=== PATIENT | female | born 1940 | race Caucasian/White ===

== ENCOUNTER 2019-09-05 09:05 | Observation (INO) | payer MEDICARE ==
[~2019-09-05] VITALS: Ht 160 cm; Wt 102.5 kg
[~2019-09-05 09:05] MED LIST: BUPIVACAINE/PF 0.25% ONE; EPINEPHRINE 1 MG/ML, 1ML ONE; LETR2.5T PO; METO25TA35 PO
[2019-09-05] MEDS ORDERED: LIDOCAINE-MPF 1%, 2ML INFIL ONE (10:00)
[2019-09-05 10:18] VITALS: BP 128/74
[2019-09-05] MEDS: LACTATED RINGERS 1,000 ML IV SCH ×3 (10:41→23:28)
[2019-09-05] MEDS ORDERED: BUPIVACAINE/PF 0.25% ONE (15:33)
[2019-09-05] MEDS ORDERED: EPINEPHRINE 1 MG/ML, 1ML ONE (15:33)
[2019-09-05] MEDS ORDERED: INDOCYANINE GREEN 25 MG VIAL ONE (15:33)
[2019-09-05] MEDS ORDERED: HEPARIN 5,000 UNITS/ML, 1ML ONE (15:33)
[2019-09-05] MEDS ORDERED: FENTANYL PF 250 MCG/5ML ONE (16:36)
[2019-09-05] MEDS ORDERED: PROPOFOL 50 ML ONE (16:36)
[2019-09-05] MEDS ORDERED: ROCURONIUM 10MG/ML,5ML ONE (17:49)
[2019-09-05] MEDS ORDERED: SUCCINYLCHOLINE 20 MG/ML, 10ML ONE (17:49)
[2019-09-05] MEDS ORDERED: OXYcodone 5 MG/5 ML ORAL.SOL UDC PO PRN (18:00)
[2019-09-05] MEDS ORDERED: ACETAMINOPHEN 325 MG TABLET PO PRN (18:00)
[2019-09-05] MEDS ORDERED: DIPHENHYDRAMINE 50 MG/ML, 1ML IVPush PRN (18:00)
[2019-09-05] MEDS ORDERED: ONDANSETRON ODT 8 MG PO PRN (18:00)
[2019-09-05] MEDS ORDERED: EPHEDRINE 50 MG/ML, 1ML IVPush PRN (18:00)
[2019-09-05] MEDS ORDERED: MIDAZOLAM 1 MG/ML, 2ML IV PRN (18:00)
[2019-09-05] MEDS ORDERED: ONDANSETRON 2MG/ML, 2ML IV PRN (18:00)
[2019-09-05] MEDS ORDERED: FENTANYL PF 100 MCG/2ML IV PRN (18:00)
[2019-09-05] MEDS ORDERED: PROMETHAZINE 25 MG/ML, 1ML IV PRN (18:00)
[2019-09-05] MEDS ORDERED: DEXAMETHASONE 4 MG/ML, 1ML ONE (19:49)
[2019-09-05] MEDS ORDERED: CEFAZOLIN 1,000 MG ONE ×2 (19:49)
[2019-09-05] MEDS ORDERED: ONDANSETRON 2MG/ML, 2ML ONE (19:49)
[2019-09-05] MEDS ORDERED: SUGAMMADEX 200 MG/2 ML IVPush ONE (20:16)
[2019-09-05] MEDS ORDERED: METOPROLOL 1 MG/ML, 5ML ONE (20:18)
[2019-09-05] MEDS ORDERED: FENTANYL PF 100 MCG/2ML ONE (20:55)
[2019-09-05] MEDS ORDERED: morphine SULFATE 10 MG/ML, 1ML ONE ×2 (21:03→21:32)
[2019-09-05] MEDS: MORPHINE SULFATE 4 MG/ML, 1ML IVPush PRN ×3 (21:06→21:35)
[2019-09-05] MEDS ORDERED: OPIUM/BELLADONNA SUPP.RECT 16.2-30 MG ONE (21:10)
[2019-09-05] MEDS ORDERED: OPIUM/BELLADONNA SUPP.RECT 16.2-30 MG PR ONE (21:30)
[2019-09-05] MEDS ORDERED: PROMETHAZINE 25 MG/ML, 1ML ONE (21:49)
[2019-09-05] MEDS ORDERED: OXYcodone 5 MG/5 ML ORAL.SOL UDC ONE (21:54)
[2019-09-05] MEDS ORDERED: KETOROLAC 30 MG/1 ML IVPush PRN (22:00)
[2019-09-05] MEDS ORDERED: morphine SULFATE 10 MG/ML, 1ML IVPush PRN (22:00)
[2019-09-05] MEDS ORDERED: ONDANSETRON 2MG/ML, 2ML IVPush PRN (22:00)
[2019-09-05] MEDS ORDERED: OXYcodone/APAP 5/325MG TABLET PO PRN (22:00)
[2019-09-05 23:02] VITALS: BP 140/60
[2019-09-06 03:09] VITALS: BP 116/68
[2019-09-06] MEDS: LACTATED RINGERS 1,000 ML IV SCH (05:59)
[2019-09-06 06:37] VITALS: BP 111/68
[2019-10-05] MEDS ORDERED: METO25TA35 PO (12:27)
[2019-10-05] MEDS ORDERED: OXYcodone/APAP 5/325MG PO (12:27)
[2019-10-05] MEDS ORDERED: POLY17PO5 PO (12:27)
[2019-10-05] MEDS ORDERED: ONDA4TAB13 SL (13:54)
[2019-10-05] MEDS ORDERED: ACET650S21 PO (13:54)
== END 2019-09-06 12:00 | disposition home or self-care (01) ==
LOC: OUT 09:05 → 4NW 21:37 → DCLOUNGE 09-06 11:44
PROVIDERS: ADMIT Specialist; ATTEND Specialist
DX: C7A.1 Malignant poorly differentiated neuroendocrine tumors (principal); C50.919 Malignant neoplasm of unspecified site of unspecified female breast; C79.51 Secondary malignant neoplasm of bone; N95.0 Postmenopausal bleeding; I10 Essential (primary) hypertension; M19.90 Unspecified osteoarthritis, unspecified site
CPT/HCPCS: 36415; 52332; 58573; 86850; 86900; 86923; 88309; 88341; 88342; 88360; 96374; C1769; C2617; G0378; J0171; J0330; J0690; J1100; J1644; J1885; J2270; J2405; J2550; J2704; J3010; J3490; J7120; S2900

== ENCOUNTER 2020-02-02 08:03 | Outpatient (CLI) | payer MEDICARE ==
[~2020-02-02 08:03] MED LIST changes: +ACET650S21 PO; -BUPIVACAINE/PF 0.25% ONE; -EPINEPHRINE 1 MG/ML, 1ML ONE; -LETR2.5T PO; +LETR2.5T3 PO; +ONDA4TAB13 SL; +OXYcodone/APAP 5/325MG PO; +POLY17PO5 PO
== END 2020-02-02 23:59 | disposition home or self-care (01) ==
LOC: ROC 08:03
PROVIDERS: ATTEND Radiology Radiation Oncology
DX: C54.1 Malignant neoplasm of endometrium (principal)
CPT/HCPCS: 77290; 77470; G0463

== ENCOUNTER 2020-02-13 07:53 | Inpatient (IN) | payer MEDICARE ==
[~2020-02-13] VITALS: Ht 162.6 cm; Wt 96.6 kg
[2020-02-13] MEDS: METOPROLOL TARTRATE 25 MG TAB PO SCH (09:00)
[2020-02-13 09:09] LABS: BASOPHILS # (AUTO) 0.03 x10^3/uL (0-0.1); BASOPHILS % (AUTO) 0 % (0-1); EOSINOPHILS # (AUTO) 0.03 x10^3/uL (0-0.4); EOSINOPHILS % (AUTO) 0 % (1-7); LYMPHOCYTES # (AUTO) 1.19 x10^3/uL (1-3.4); LYMPHOCYTES % (AUTO) 10 % (22-44); MD NO; MEAN CORPUSCULAR HEMOGLOBIN 23.9 pg (27.0-34.8); MEAN CORPUSCULAR HGB CONC 31.3 g/dL (32.4-35.8); MEAN CORPUSCULAR VOLUME 76.4 fL (80-100); MEAN PLATELET VOLUME 6.9 fL (7.4-10.4); MONOCYTES # (AUTO) 0.89 x10^3/uL (0.2-0.8); MONOCYTES % (AUTO) 8 % (2-9); NEUTROPHILS # (AUTO) 9.46 x10^3/uL (1.8-6.8); NEUTROPHILS % (AUTO) 82 % (42-75); PLATELET COUNT 480 x10^3/uL (130-400); RED BLOOD COUNT 5.05 x10^6/uL (3.82-5.3); RED CELL DISTRIBUTION WIDTH 21.4 % (9.6-15.2)
[2020-02-13 09:19] LABS: ALANINE AMINOTRANSFERASE 17 U/L (12-78); ALBUMIN 2.5 g/dL (3.4-5.0); ANION GAP 9 mmol/L (5-15); CALCIUM 9.2 mg/dL (8.5-10.1); CHLORIDE 106 mmol/L (98-107); CREATININE 0.53 mg/dL (0.55-1.02)
[2020-02-13 09:22] LABS: ALKALINE PHOSPHATASE 135 U/L (45-117); BILIRUBIN,TOTAL 0.4 mg/dL (0.2-1.0); TOTAL PROTEIN 7.4 g/dL (6.4-8.2)
[2020-02-13] MEDS ORDERED: OXYcodone/APAP 5/325MG TABLET ONE (09:25)
[2020-02-13] MEDS: OXYcodone/APAP 5/325MG TABLET PO PRN ×2 (09:29→15:03)
[2020-02-13] MEDS ORDERED: PROCHLORPERAZINE 10MG TABLET PO PRN (10:00)
[2020-02-13] MEDS ORDERED: OXYcodone/APAP 5/325MG TABLET PO PRN ×2 (10:00→16:21)
[2020-02-13] MEDS ORDERED: ACETAMINOPHEN 325 MG TABLET PO PRN (10:00)
[2020-02-13 11:13] LABS: MICROSCOPIC INDICATED
[2020-02-13 11:14] LABS: CULTURE INDICATED? YES
[2020-02-13] MEDS: SODIUM CHLORIDE 0.9% 1,000 ML IV SCH ×2 (13:30→14:30)
[2020-02-13 14:55] VITALS: BP 107/65
[2020-02-13] MEDS ORDERED: ONDANSETRON 16 MG, DEXAMETHASONE 12 MG in SODIUM CHLORIDE 0.9% 50 ML IVPB ONE (15:30)
[2020-02-13] MEDS ORDERED: FOSAPREPITANT 150 MG in SODIUM CHLORIDE 0.9% 145 ML IV ONE (15:30)
[2020-02-13] MEDS ORDERED: FAMOTIDINE 20 MG/2 ML IVPush ONE (15:30)
[2020-02-13] MEDS ORDERED: DIPHENHYDRAMINE 50 MG/ML, 1ML IVPush ONE (15:30)
[2020-02-13] MEDS ORDERED: CISPLATIN 39 MG in SODIUM CHLORIDE 0.9% 250 ML IV ONE (16:00)
[2020-02-13] MEDS ORDERED: MORPHINE SULFATE 4 MG/ML, 1ML ONE (16:24)
[2020-02-13] MEDS ORDERED: morphine SULFATE 10 MG/ML, 1ML IVPush ONE (16:30)
[2020-02-13] MEDS ORDERED: SULFAMETH./TRIMETHOPRIM DS 800MG/160MG TABLET ONE (16:53)
[2020-02-13] MEDS ORDERED: KETOROLAC 30 MG/1 ML ONE (16:54)
[2020-02-13] MEDS ORDERED: KETOROLAC 30 MG/1 ML IVPush ONE (17:00)
[2020-02-13] MEDS: SULFAMETH./TRIMETHOPRIM DS 800MG/160MG TABLET PO SCH ×2 (17:01→20:56)
[2020-02-13 19:46] VITALS: BP 106/56
[2020-02-13] MEDS: SODIUM CHLORIDE 0.9% IVPush SCH ×2 (20:17→23:55)
[2020-02-13] MEDS: MANNITOL IVPush SCH ×2 (20:17→23:55)
[2020-02-13] MEDS: IBUPROFEN 200 MG TABLET PO PRN (21:18)
[2020-02-14] MEDS: IBUPROFEN 200 MG TABLET PO PRN (00:20)
[2020-02-14 01:41] VITALS: BP 121/62
[2020-02-14 07:52] VITALS: BP 125/70
[2020-02-14] MEDS: SULFAMETH./TRIMETHOPRIM DS 800MG/160MG TABLET PO SCH (08:55)
[2020-02-14] MEDS: METOPROLOL TARTRATE 25 MG TAB PO SCH (09:00)
[2020-02-14] MEDS ORDERED: LETROZOLE 2.5 MG TABLET PO SCH (09:00)
[2020-02-14 14:48] VITALS: BP 126/68
[2020-02-14] MEDS ORDERED: SULF1TAB24 PO (17:32)
== END 2020-02-14 19:00 | disposition home or self-care (01) | DRG 847 ==
LOC: OBSVTOIN 07:53 → 3N 07:53 → INTOOBSV 07:53 → OBSVTOIN 02-14 12:00
PROVIDERS: ADMIT Specialist; ATTEND Specialist
PROC: 3E0 Administration, Physiological Systems and Anatomical Regions, Introduction (ICD-10-PCS; principal; 2020-02-14)
DX: Z51.11 Encounter for antineoplastic chemotherapy (principal); C7A.8 Other malignant neuroendocrine tumors; N93.9 Abnormal uterine and vaginal bleeding, unspecified; Z51.5 Encounter for palliative care; M54.9 Dorsalgia, unspecified; R19.00 Intra-abdominal and pelvic swelling, mass and lump, unspecified site; R60.0 Localized edema; I10 Essential (primary) hypertension; M19.90 Unspecified osteoarthritis, unspecified site; G89.29 Other chronic pain; M54.5 Low back pain; R30.0 Dysuria; Z90.710 Acquired absence of both cervix and uterus
CPT/HCPCS: 36415; 80053; 81001; 83735; 85025; 87077; 87086; 87186; 93922; G0378; J1100; J1453; J1885; J2405; J9060; J1200; J2150; J2270; J3490; J7030; J7050

== ENCOUNTER → 2020-02-24 | Outpatient (CLI) | payer MEDICARE ==
[~2020-02-24] MED LIST changes: +SULF1TAB24 PO
[2020-02-24 14:47] LABS: ALBUMIN 2.5 g/dL (3.4-5.0); ANION GAP 7 mmol/L (5-15); CALCIUM 7.9 mg/dL (8.5-10.1); CHLORIDE 108 mmol/L (98-107)
[2020-02-24 14:51] LABS: ALANINE AMINOTRANSFERASE 12 U/L (12-78); ALKALINE PHOSPHATASE 129 U/L (45-117); CREATININE 2.24 mg/dL (0.55-1.02); TOTAL PROTEIN 6.4 g/dL (6.4-8.2)
[2020-02-24 15:01] LABS: BILIRUBIN,TOTAL < 0.1 mg/dL (0.2-1.0)
[2020-02-24 15:05] LABS: BASOPHILS % (AUTO) 0 % (0-1); EOSINOPHILS # (AUTO) 0.17 x10^3/uL (0-0.4); EOSINOPHILS % (AUTO) 3 % (1-7); LYMPHOCYTES # (AUTO) 0.38 x10^3/uL (1-3.4); LYMPHOCYTES % (AUTO) 8 % (22-44); MEAN CORPUSCULAR HEMOGLOBIN 24.7 pg (27.0-34.8); MEAN CORPUSCULAR HGB CONC 32.3 g/dL (32.4-35.8); MEAN CORPUSCULAR VOLUME 76.7 fL (80-100); MEAN PLATELET VOLUME 7.2 fL (7.4-10.4); MONOCYTES % (AUTO) 8 % (2-9); NEUTROPHILS % (AUTO) 81 % (42-75); PLATELET COUNT 188 x10^3/uL (130-400); RED BLOOD COUNT 4.18 x10^6/uL (3.82-5.3); RED CELL DISTRIBUTION WIDTH 20.6 % (9.6-15.2)
[2020-02-24 15:06] LABS: MD SCAN
== END | disposition home or self-care (01) ==
LOC: LAB 14:14
PROVIDERS: ATTEND Physician Assistant
DX: Z51.11 Encounter for antineoplastic chemotherapy (principal); C79.82 Secondary malignant neoplasm of genital organs; C54.1 Malignant neoplasm of endometrium; N93.8 Other specified abnormal uterine and vaginal bleeding; N32.9 Bladder disorder, unspecified; Z96.0 Presence of urogenital implants
CPT/HCPCS: 36415; 80053; 85025

== ENCOUNTER → 2020-03-01 | Outpatient (CLI) | payer MEDICARE ==
[2020-03-01 12:36] LABS: MICROSCOPIC INDICATED
== END | disposition home or self-care (01) ==
LOC: LAB 11:58
PROVIDERS: ATTEND Physician Assistant
DX: Z51.11 Encounter for antineoplastic chemotherapy (principal); C79.82 Secondary malignant neoplasm of genital organs; C54.1 Malignant neoplasm of endometrium; N32.9 Bladder disorder, unspecified; N93.8 Other specified abnormal uterine and vaginal bleeding; R97.1 Elevated cancer antigen 125 [CA 125]; R30.0 Dysuria; E83.42 Hypomagnesemia; Z96.0 Presence of urogenital implants
CPT/HCPCS: 81001; 87086; 87106

== ENCOUNTER → 2020-03-07 | Outpatient (CLI) | payer MEDICARE | END | disposition home or self-care (01) | LOC: RAD 14:26 | PROVIDERS: ATTEND Radiology Radiation Oncology | DX: C54.1 Malignant neoplasm of endometrium (principal); I82.612 Acute embolism and thrombosis of superficial veins of left upper extremity ==

== ENCOUNTER → 2020-03-12 | Outpatient (CLI) | payer MEDICARE ==
[2020-03-12 12:43] LABS: MICROSCOPIC MANUAL
== END | disposition home or self-care (01) ==
LOC: LAB 12:00
PROVIDERS: ATTEND Physician Assistant
DX: Z51.11 Encounter for antineoplastic chemotherapy (principal); C54.1 Malignant neoplasm of endometrium; C79.82 Secondary malignant neoplasm of genital organs; N32.9 Bladder disorder, unspecified; N93.8 Other specified abnormal uterine and vaginal bleeding; N17.9 Acute kidney failure, unspecified; E83.42 Hypomagnesemia; R97.1 Elevated cancer antigen 125 [CA 125]; R30.0 Dysuria; R19.7 Diarrhea, unspecified; N39.0 Urinary tract infection, site not specified; Z96.0 Presence of urogenital implants
CPT/HCPCS: 87086

== ENCOUNTER → 2020-03-16 | Outpatient (CLI) | payer MEDICARE ==
[2020-03-16 12:18] LABS: MEAN CORPUSCULAR HEMOGLOBIN 25.4 pg (27.0-34.8); MEAN CORPUSCULAR HGB CONC 32.1 g/dL (32.4-35.8); MEAN CORPUSCULAR VOLUME 79.3 fL (80-100); MEAN PLATELET VOLUME 7.1 fL (7.4-10.4); PLATELET COUNT 282 x10^3/uL (130-400); RED BLOOD COUNT 4.38 x10^6/uL (3.82-5.3); RED CELL DISTRIBUTION WIDTH 23.4 % (9.6-15.2)
[2020-03-16 12:22] LABS: ALANINE AMINOTRANSFERASE 26 U/L (12-78); ALBUMIN 2.7 g/dL (3.4-5.0); ANION GAP 7 mmol/L (5-15); CALCIUM 6.9 mg/dL (8.5-10.1); CHLORIDE 108 mmol/L (98-107); CREATININE 0.89 mg/dL (0.55-1.02)
[2020-03-16 12:24] LABS: ALKALINE PHOSPHATASE 141 U/L (45-117); BILIRUBIN,TOTAL 0.2 mg/dL (0.2-1.0); TOTAL PROTEIN 6.8 g/dL (6.4-8.2)
[2020-03-16 12:38] LABS: BASOPHILS # (AUTO) 0.01 x10^3/uL (0-0.1); BASOPHILS % (AUTO) 0 % (0-1); EOSINOPHILS # (AUTO) 0.29 x10^3/uL (0-0.4); EOSINOPHILS % (AUTO) 6 % (1-7); LYMPHOCYTES # (AUTO) 0.18 x10^3/uL (1-3.4); LYMPHOCYTES % (AUTO) 4 % (22-44); MD SCAN; MONOCYTES # (AUTO) 0.58 x10^3/uL (0.2-0.8); MONOCYTES % (AUTO) 12 % (2-9); NEUTROPHILS # (AUTO) 3.74 x10^3/uL (1.8-6.8); NEUTROPHILS % (AUTO) 78 % (42-75)
== END | disposition home or self-care (01) ==
LOC: LAB 11:44
PROVIDERS: ATTEND Family Medicine
DX: Z51.11 Encounter for antineoplastic chemotherapy (principal); C54.1 Malignant neoplasm of endometrium; C79.82 Secondary malignant neoplasm of genital organs; E83.42 Hypomagnesemia; N32.9 Bladder disorder, unspecified; N93.8 Other specified abnormal uterine and vaginal bleeding; R97.1 Elevated cancer antigen 125 [CA 125]; Z96.0 Presence of urogenital implants
CPT/HCPCS: 36415; 80053; 83735; 85025; 86304

== ENCOUNTER 2020-04-03 11:24 | Outpatient (CLI) | payer MEDICARE ==
[2020-04-03 11:51] LABS: ALANINE AMINOTRANSFERASE 30 U/L (12-78); ALBUMIN 2.9 g/dL (3.4-5.0); ANION GAP 11 mmol/L (5-15); CALCIUM 7.8 mg/dL (8.5-10.1); CHLORIDE 107 mmol/L (98-107); CREATININE 0.86 mg/dL (0.55-1.02)
[2020-04-03 11:53] LABS: ALKALINE PHOSPHATASE 120 U/L (45-117); BILIRUBIN,TOTAL 0.4 mg/dL (0.2-1.0); TOTAL PROTEIN 6.8 g/dL (6.4-8.2)
[2020-04-03 12:17] LABS: MEAN CORPUSCULAR HEMOGLOBIN 26.6 pg (27.0-34.8); MEAN CORPUSCULAR HGB CONC 32.7 g/dL (32.4-35.8); MEAN CORPUSCULAR VOLUME 81.5 fL (80-100); MEAN PLATELET VOLUME 7.4 fL (7.4-10.4); PLATELET COUNT 280 x10^3/uL (130-400); RED BLOOD COUNT 4.19 x10^6/uL (3.82-5.3); RED CELL DISTRIBUTION WIDTH 25.1 % (9.6-15.2)
[2020-04-03 12:44] LABS: BASOPHILS # (AUTO) 0.01 x10^3/uL (0-0.1); BASOPHILS % (AUTO) 0 % (0-1); EOSINOPHILS # (AUTO) 0.07 x10^3/uL (0-0.4); EOSINOPHILS % (AUTO) 2 % (1-7); LYMPHOCYTES # (AUTO) 0.28 x10^3/uL (1-3.4); LYMPHOCYTES % (AUTO) 6 % (22-44); MD SCAN; MONOCYTES # (AUTO) 0.53 x10^3/uL (0.2-0.8); MONOCYTES % (AUTO) 11 % (2-9); NEUTROPHILS # (AUTO) 3.81 x10^3/uL (1.8-6.8); NEUTROPHILS % (AUTO) 81 % (42-75)
== END 2020-04-03 23:59 | disposition home or self-care (01) ==
LOC: LAB 11:24
PROVIDERS: ATTEND Physician Assistant
DX: Z51.11 Encounter for antineoplastic chemotherapy (principal); C54.1 Malignant neoplasm of endometrium; C79.82 Secondary malignant neoplasm of genital organs; N32.9 Bladder disorder, unspecified; N93.8 Other specified abnormal uterine and vaginal bleeding; R30.0 Dysuria; E83.42 Hypomagnesemia; R97.1 Elevated cancer antigen 125 [CA 125]; R19.7 Diarrhea, unspecified
CPT/HCPCS: 36415; 80053; 83735; 85025; 86304

== ENCOUNTER → 2020-05-10 | Outpatient (CLI) | payer MEDICARE | END | disposition home or self-care (01) | LOC: ROC 09:23 | PROVIDERS: ATTEND Radiology Radiation Oncology | DX: C54.1 Malignant neoplasm of endometrium (principal); C7B.8 Other secondary neuroendocrine tumors; R91.1 Solitary pulmonary nodule | CPT/HCPCS: G0463 ==

== ENCOUNTER 2020-05-16 09:44 | Day surgery (SDC) | payer MEDICARE ==
[~2020-05-16] VITALS: Ht 162.6 cm; Wt 86.6 kg
[2020-05-16 11:00] VITALS: BP 161/83
[2020-05-16] MEDS ORDERED: SODIUM CHLORIDE 0.9% 1,000 ML IV SCH ×2 (12:00)
[2020-05-16] MEDS ORDERED: FENTANYL PF 100 MCG/2ML ONE (12:04)
[2020-05-16] MEDS ORDERED: MIDAZOLAM 1 MG/ML, 5ML ONE (12:04)
[2020-05-16] MEDS ORDERED: FLUMAZENIL 0.1 MG/1 ML, 5ML ONE (12:04)
[2020-05-16] MEDS ORDERED: NALOXONE 1 MG/ML, 2ML ONE (12:04)
== END 2020-05-16 15:35 | disposition home or self-care (01) ==
LOC: OUT 09:44
PROVIDERS: ATTEND Radiology Radiation Oncology
DX: R91.1 Solitary pulmonary nodule (principal); D38.1 Neoplasm of uncertain behavior of trachea, bronchus and lung; I10 Essential (primary) hypertension; Z79.899 Other long term (current) drug therapy; Z88.2 Allergy status to sulfonamides; Z90.710 Acquired absence of both cervix and uterus; Z85.3 Personal history of malignant neoplasm of breast; Z85.42 Personal history of malignant neoplasm of other parts of uterus
CPT/HCPCS: 32405; 71045; 77012; 88305; 88341; 88342; 99156; 99157; C2613; J2250; J3010; J7030; J2310

== ENCOUNTER → 2020-08-08 | Outpatient (CLI) | payer MEDICARE ==
[~2020-08-08] MED LIST changes: +OMNIPAQUE 350 MG/ML, 100ML BOTTLE ONE
== END | disposition home or self-care (01) ==
LOC: CFH 12:19
PROVIDERS: ATTEND Radiology Radiation Oncology
DX: C78.02 Secondary malignant neoplasm of left lung (principal); C54.1 Malignant neoplasm of endometrium; N28.1 Cyst of kidney, acquired; J98.4 Other disorders of lung; M51.36 Other intervertebral disc degeneration, lumbar region; E04.2 Nontoxic multinodular goiter; R91.1 Solitary pulmonary nodule; I51.7 Cardiomegaly; K76.89 Other specified diseases of liver
CPT/HCPCS: 71260; 74177; 82565; Q9967

== ENCOUNTER → 2020-08-29 | Outpatient (CLI) | payer MEDICARE ==
[~2020-08-29] MED LIST changes: -OMNIPAQUE 350 MG/ML, 100ML BOTTLE ONE
== END | disposition home or self-care (01) ==
LOC: ROC 07:08
PROVIDERS: ATTEND Radiology Radiation Oncology
DX: C78.02 Secondary malignant neoplasm of left lung (principal); R91.1 Solitary pulmonary nodule
CPT/HCPCS: G0463

== ENCOUNTER → 2020-12-10 | Outpatient (CLI) | payer MEDICARE ==
[~2020-12-10] MED LIST changes: +OMNIPAQUE 350 MG/ML, 75ML BOTTLE ONE
== END | disposition home or self-care (01) ==
LOC: CFH 10:30
PROVIDERS: ATTEND Radiology Radiation Oncology
DX: C78.02 Secondary malignant neoplasm of left lung (principal); C54.1 Malignant neoplasm of endometrium; R91.8 Other nonspecific abnormal finding of lung field
CPT/HCPCS: 71260; Q9967

== ENCOUNTER 2020-12-13 09:39 | Outpatient (CLI) | payer MEDICARE ==
[~2020-12-13 09:39] MED LIST changes: -OMNIPAQUE 350 MG/ML, 75ML BOTTLE ONE
== END 2020-12-13 23:59 | disposition home or self-care (01) ==
LOC: ROC 09:39
PROVIDERS: ATTEND Radiology Radiation Oncology
DX: Z08 Encounter for follow-up examination after completed treatment for malignant neoplasm (principal); Z85.118 Personal history of other malignant neoplasm of bronchus and lung
CPT/HCPCS: G2012; G2251

== ENCOUNTER 2021-02-04 10:09 | Outpatient (CLI) | payer MEDICARE ==
[~2021-02-04 10:09] MED LIST changes: +SULF-23 PO; -SULF1TAB24 PO
[2021-02-04] MEDS ORDERED: OMNIPAQUE 350 MG/ML, 100ML BOTTLE ONE (11:53)
== END 2021-02-04 23:59 | disposition home or self-care (01) ==
LOC: CFH 10:09
PROVIDERS: ATTEND Radiology Radiation Oncology
DX: C78.02 Secondary malignant neoplasm of left lung (principal); C54.1 Malignant neoplasm of endometrium; N28.1 Cyst of kidney, acquired; N20.0 Calculus of kidney; M85.88 Other specified disorders of bone density and structure, other site; M43.8X6 Other specified deforming dorsopathies, lumbar region; I70.0 Atherosclerosis of aorta; I51.7 Cardiomegaly; E04.9 Nontoxic goiter, unspecified
CPT/HCPCS: 71260; 74177; Q9967

== ENCOUNTER → 2021-05-06 | Outpatient (CLI) | payer MEDICARE ==
[~2021-05-06] MED LIST changes: +OMNIPAQUE 350 MG/ML, 100ML BOTTLE ONE
== END | disposition home or self-care (01) ==
LOC: CFH 09:29
PROVIDERS: ATTEND Radiology Radiation Oncology
DX: C78.02 Secondary malignant neoplasm of left lung (principal); C54.1 Malignant neoplasm of endometrium; M48.54XA Collapsed vertebra, not elsewhere classified, thoracic region, initial encounter for fracture
CPT/HCPCS: 71260; 74177; Q9967

== ENCOUNTER → 2021-05-09 | Outpatient (CLI) | payer MEDICARE ==
[~2021-05-09] MED LIST changes: -OMNIPAQUE 350 MG/ML, 100ML BOTTLE ONE
== END | disposition home or self-care (01) ==
LOC: ROC 09:35
PROVIDERS: ATTEND Radiology Radiation Oncology
DX: Z08 Encounter for follow-up examination after completed treatment for malignant neoplasm (principal); Z85.118 Personal history of other malignant neoplasm of bronchus and lung; Z85.42 Personal history of malignant neoplasm of other parts of uterus
CPT/HCPCS: G2251